=== PATIENT | male | born 1990 | race Caucasian/White ===

== ENCOUNTER 2022-05-04 15:16 | Inpatient (IN) ==
[2022-05-04 16:13] LABS: Basophils # (auto) 0.04 K/uL (0-0.2); Basophils % (auto) 0.6 %; Eosinophils # (auto) 0.06 K/uL (0-0.50); Eosinophils % (auto) 0.9 %; Hemoglobin 14.2 g/dl (14.0-18.0); Immature Granulocytes # (auto) 0.01 K/uL (0.00-0.02); Immature Granulocytes % (auto) 0.2 %; Lymphocytes # (auto) 1.31 K/uL (1.2-3.4); Lymphocytes % (auto) 20.6 %; Mean Corpuscular Volume 87.9 fL (80.0-100.0); Mean Platelet Volume 9.3 fL (9.4-12.4); Monocytes % (auto) 7.9 %; Neutrophils # (auto) 4.43 K/uL (1.4-6.5); Neutrophils % (auto) 69.8 %; Platelet Count 322 K/uL (130-400); RDW Coefficient of Variation 12.9 % (11.5-14.5); RDW Standard Deviation 41.4 fL (36.4-46.3); Red Blood Count 4.89 M/uL (4.63-6.08); White Blood Count 6.35 K/ul (4.8-10.8)
[2022-05-04 16:24] LABS: Appearance Urine Clear (Clear); Bilirubin Urine Negative (Negative); Blood Urine Negative (Negative); Color Urine Yellow; Glucose Urine UA Negative (Negative); Ketones Urine Negative (Negative); Leukocyte Esterase Urine Negative (Negative); Nitrite Urine Negative (Negative); Protein Urine Negative (Negative); Urobilinogen Urine Negative (Negative)
[2022-05-04 16:33] LABS: Alanine Aminotransferase 16 U/L (7-52); Albumin Globulin Ratio 1.7 (0.9-2); Albumin Level 4.5 gm/dl (3.4-5.0); Alkaline Phosphatase 73 U/L (34-104); Anion Gap 4 (3-11); Aspartate Aminotransferase 24 U/L (13-39); BUN Creatinine Ratio 15.7 (10-20); Bilirubin,Total 0.5 mg/dl (0.2-1.0); Blood Urea Nitrogen 14 mg/dl (6-23); Calcium 9.4 mg/dl (8.5-10.1); Carbon Dioxide 31 mmol/L (21-32); Chloride 101 mmol/L (98-107); Est GFR (Non-African American) 114.7 ml/min; Globulin 2.7 gm/dl (2.5-4.0); Glucose 96 mg/dl (70-99(Fasting)); Potassium 4.8 mmol/L (3.5-5.1); Sodium 136 mmol/L (136-145); Total Protein 7.2 gm/dl (6.0-8.3)
[2022-05-04 16:34] LABS: Acetaminophen < 3 ug/ml (10-30); Salicylate < 3.0 mg/dl (3.0-30)
[2022-05-04 16:47] LABS: Amphetamines+Metham, Urine Neg (Neg); Barbiturates, Urine Neg (Neg); Benzodiazepine, Urine Neg (Neg); Cocaine, Urine Neg (Neg); MDMA (Ecstacy), Urine Neg (Neg); Methadone, Urine Neg (Neg); Opiate, Urine Neg (Neg); Phencyclidine, Urine Neg (Neg)
--- NOTE | 2022-05-04 16:59 | History & Physical Report ---
Date of Service May 04, 2022 Assessment & Plan (1) Suicidal ideation: Plan: - Active attempt 2 days ago, attempted to strangle himself with a cord. Patient had auditory loose Nations then, but denies them now, also denies having active suicidal ideation or plan. - Suicide precautions, 1-1, safe meal tray ordered. - EKG to eval QTC with anticipated use of QTc prolonging agents. - Haldol 5 mg IM q6h prn for agitation with additional Zyprexa 10 mg HS prn. - Consult to psychiatry group placed. Patient is being admitted voluntarily, not currently under 302 however a petition for a 302 has been completed if patient does try to leave AMA. (2) Illicit drug use: Plan: - Since age 14, with methamphetamine being his drug of choice. Last use several weeks ago. - On Suboxone 8 mg TID, with clonidine 0.1 mg TID prn and Vistaril 50 mg TID for restlessness. * Did confirm PDMP the patient receives 8 mg of Suboxone 3 times daily, not the previously entered dose of 24 mg 3 times daily. * Evening dose 8 mg Suboxone ordered for administration in ED. -History of hepatitis C infection, treated while incarcerated several years ago. (3) COVID-19: Plan: - Asymptomatic, tested positive on routine admission testing in ED. - Labs all wnl, SpO2 100% on RA. No known underlying cardiac or pulmonary disease. - Will provide prn symptomatic care. - Daily labs. - Not vaccinated. Plan - Admitted to med/surg. - SCDs and Lovenox or VTE ppx - Full Code. History of Present Illness Chief Complaint: Suicide attempt 2 days ago, presents for mental health evaluation Primary Care Provider: NO PCP Jake Olivas is a 31-year-old male with past medical history of methamphetamine use and incarceration for the past 8 years recently admitted to [facility] who presents today with suicidal ideation. 2 days ago, he had a suicide attempt at [facility] in which he tried to strangle himself with a fan cord. His reason for doing so was because he felt he was being targeted and trying to be limited by the staff there and could not stand it anymore. It was somewhat of a poor impulse decision. He informed staff today of the attempt and he had asked to be transported to the ED for mental health evaluation. He states he arrived at the facility 8 days ago for rehabilitation and is paranoid that they are trying to "eliminate him ". He has had auditory hallucinations while being there, hearing voices saying that they are going to harm him, however no voices telling him to harm others. No visual or tactile hallucinations. No current hallucinations at the time of my visit. He states he is an otherwise healthy person, was treated several years ago for hepatitis C infection, otherwise besides his Suboxone he is not on any medications. He has not previously been diagnosed with any mental health conditions, but does state that he is struggling to incorporate himself into the world again after being in [facility] for so long and feels like he "is only 31 but is already ready to be done with life ". He tells me repeatedly he has no active plans for killing himself. He is very much looking forward to getting treatment. States the attempt 2 days ago was an impulsive decision because of the way he felt he was being treated and judged at the facility. In ED, his vital signs are within normal limits and stable, SPO2 100% on RA. Labs largely unremarkable with the exception of COVID which is positive here. UDS negative for all substances. From a COVID standpoint, he reports he has been asymptomatic, but that he has been profusely sweating the past few days which she attributes to being poisoned with septic water. Objective fevers reported, no chest pain, cough, shortness of breath, lightheadedness, dizziness, loss of taste or smell, headaches, abdominal pain, nausea, vomiting, diarrhea, constipation. Allergies Allergy/AdvReac Type Severity Reaction Status Date / Time No Known Allergies Allergy Unverified 05/04/22 15:51 Home Medications Medication Instructions Recorded Confirmed Type A To Z Multivitamin See Rx Instructions .Route .COMPLEX 05/04/22 05/04/22 History Allergy (diphenhydramine) 25 mg PO Q6 PRN Allergy Symptoms 05/04/22 05/04/22 History Suboxone 8 mg PO TID 05/04/22 05/04/22 History Vistaril 50 mg PO TID PRN restlessness 05/04/22 05/04/22 History clonidine 0.1 mg PO TID PRN restlessness 05/04/22 05/04/22 History Past Med/Surg History Medical History Illicit drug use No pertinent family history Suicidal ideation Surgical History No pertinent past surgical history Family History (Updated 05/04/22 @ 18:08 by Ashley Goff PA-C) Other Family history unknown Social History Smoking Status: Current every day smoker Tobacco Type: Cigarettes Preferred Language: Norwegian Feels Safe at Home: Yes Review of Systems Review of Systems: Constitutional: No fever/chills but sweating profusely for several days; no weakness, fatigue, myalgias, anorexia, night sweats Eyes: No diplopia, no worsening or blurred vision ENT: normal hearing, no trouble swallowing Respiratory: No cough, sputum, dyspnea at rest or on exertion Cardiovascular: No chest pain, tightness or palpitations Abdomen: No pain, nausea, vomiting, diarrhea or constipation : Denies dysuria, hematuria, increased urgency/frequency, urinary retention Musculoskeletal: No joint pain, calf pain, swelling Neurologic: No weakness, numbness/tingling, or balance problems Psychiatric: Paranoia, depression, hopelessness for the past week Skin: No rash or itch Physical Exam Physical Exam: General: awake, alert, no apparent distress Head: Normocephalic, atraumatic ENT: PERRL, EOMI, no pharyngeal exudate, mucous membranes moist Chest: Clear to auscultation, on room air, no adventitious breath sounds Cardiac: Regular rate and rhythm, no murmur, no JVD, normal peripheral pulses, good capillary refill Abdominal: NABS x 4 quadrants, soft, nontender to palpation, no rebound, guarding or tenderness Extremities: Normal inspection, no peripheral edema or erythema, calfs nontender to palpation Psych: anxious, paranoid, emotionally distressed, speaking rapidly Neuro: AAO x 3, strength intact bilaterally and rated 5/5, no motor deficits, speech is clear, no peripheral sensory deficits Skin: no rash or erythema Psychiatric: Orientation: alert and oriented x 3 Eye Contact: good eye contact Speech: + pressured speech Affect: + anxious affect and + tearful affect Mood: + anxious mood, + irritable mood and + angry mood Thought Process: + perseveration Thought Content: + paranoid and + hopelessness Suicidal Thoughts: denies suicidal plan Homicidal Thoughts: denies homicidal thoughts, denies homicidal plan and denies homicidal intent Insight: + poor insight Judgement: + limited judgement Results & Data Results & Data ([facility]) Vital Signs (Past 12 Hours) Vital Signs Temp Pulse Resp BP Pulse Ox O2 Del Method 05/04/22 15:30 36.8 C 67 18 132/69 100 Room Air Laboratory Results Abnormal lab results 05/04/22 05/04/22 05/04/22 Range/Units 15:30 15:47 15:47 MPV 9.3 L (9.4-12.4) fL Salicylates < 3.0 L (3.0-30) mg/dl Acetaminophen < 3 L (10-30) ug/ml SARS-CoV-2, RNA, NAAT POSITIVE A* (NEGATIVE) Code Status & VTE Plan Code Status Full Code. Supervising Physician Co-Signing Physician Notes Patient seen and examined, chart reviewed, case discussed with Ashley Goff PA-C and I agree with the assessment and plan as above except as otherwise noted Jake Olivas is a 31-year-old male with a history of suicidal ideation and illicit drug use who presents today from [facility] with active SI and a recent suicidal attempt 2 days prior. Endorses impulsivity. Did attempt to strangle himself 2 days ago. Does have a history of methamphetamine use. UDS on admission negative. No metabolic derangements. At bedside patient's breathing is unlabored, speech somewhat pressured. Endorses past impulsive SI, no current SI or active/passive HI. Denies AH/VH at bedside reports that he takes Suboxone 8 mg 3 times daily, this is mis-entered initially as 24 mg 3 times daily in EMR. updated. Patient is incidentally COVID-positive without symptoms on admission. He is being admitted under 302 and may not leave AMA, however due to positive COVID may not be admitted directly to U. He is currently saturating 100% on room air with no symptoms of COVID. Will admit for period of COVID isolation, and then transfer to U as appropriate. Psychiatry consulted. Patient is cooperative at time of admission, orders entered for Zyprexa nightly as needed for sleep/agitation. Orders placed for Haldol IM for severe agitation with patient risk of harm to self or others. We will continue on COVID DVT prophylaxis, and obtain initial CRP. If hypoxia develops that will progress to COVID treatment including steroids at that point, for now we will follow clinically otherwise. Patient to be admitted with one-to-one observation, safety tray, and suicide precautions. PG Care Time/CCT Total # of Minutes Spent Total Time Spent with Patient: Total time spent is greater than 50% in coordination of care (as documented) at patient's floor/unit and/or counseling patient: Coding Level of Care Code 46064 Initial Inpt Care Lvl 2 Diagnoses Suicidal ideation R45.851 Illicit drug use F19.90 COVID-19 U07.1
--- NOTE | 2022-05-04 17:35 | Emergency Department Note ---
History of Present Illness General Chief complaint: Mental Health Evaluation Stated complaint: MHID Time Seen by Provider: 05/04/22 15:51 History of Present Illness Provider complaint: Mental health evaluation 31-year-old male with history of methamphetamine abuse presents emergency depar tment from [facility] for mental health evaluation.Patient states he thinks he has schizophrenia's and been hearing voices to kill himself. Patient states 2 days ago the voices told him to kill himself so he tried to strangle himself with a fan cord however he himself stopped the strangling when he realized that none of the workers from [employer] were coming in to help him. Patient reports no chest pain or difficulty breathing. Home Medications Medication Instructions Recorded Confirmed Type A To Z Multivitamin See Rx Instructions .Route .COMPLEX 05/04/22 05/04/22 History Allergy (diphenhydramine) 25 mg PO Q6 PRN Allergy Symptoms 05/04/22 05/04/22 History Suboxone 8 mg PO TID 05/04/22 05/04/22 History Vistaril 50 mg PO TID PRN restlessness 05/04/22 05/04/22 History clonidine 0.1 mg PO TID PRN restlessness 05/04/22 05/04/22 History Allergies Allergy/AdvReac Type Severity Reaction Status Date / Time No Known Allergies Allergy Unverified 05/04/22 15:51 Past Med/Surg History Medical History Illicit drug use No pertinent family history Suicidal ideation Surgical History No pertinent past surgical history Family History (Updated 05/04/22 @ 18:08 by Ashley Goff PA-C) Other Family history unknown Social History Smoking Status: Current every day smoker Tobacco Type: Cigarettes Preferred Language: Romansh Feels Safe at Home: Yes Review of Systems A total of 10 systems reviewed and were otherwise negative Physical Exam Vital Signs Vital Signs - 24 hr 05/04/22 15:30 Temperature 36.8 C Temperature Source Oral Pulse Rate 67 Respiratory Rate 18 Blood Pressure 132/69 Blood Pressure Mean 90 Blood Pressure Position Sitting Pulse Oximetry 100 Oxygen Delivery Method Room Air Sepsis Recent Fever Within 48 Hours No Sepsis New/Unexplained Change in Mental Status No Sepsis Action Taken by Nursing No Action Required Physical Exam GENERAL: He is oriented to person, place, and time. He appears well-developed and well-nourished. He does not appear distressed. HENT: Exam performed. - Head: Normocephalic and atraumatic. - Right Ear: External ear normal. No mastoid tenderness. - Left Ear: External ear normal. No mastoid tenderness. - Mouth/Throat: The oropharynx is clear and moist. No trismus in the jaw. No dental abscesses or uvula swelling. No oropharyngeal exudate or tonsillar abscesses. EYES: Conjunctivae and EOM are normal. Pupils are equal, round, and reactive to light. Right eye exhibits no discharge. Left eye exhibits no discharge. No scleral icterus. NECK: Normal range of motion. Neck supple. No JVD present. No spinous process tenderness present. No carotid bruit present. No rigidity. No tracheal deviation and normal range of motion present. No Brudzinski's sign and no Kernig's sign noted. No anthony on the patient's neck to indicate any sort of strangulation CV: Normal rate, regular rhythm, normal heart sounds and intact distal pulses. There is no peripheral edema. Palpable radial pulses bue. PULM/CHEST: Effort normal and breath sounds normal. No respiratory distress. No stridor. He has no wheezes. He has no rales. - Chest Wall: He exhibits no tenderness. ABD: The abdomen is soft. Bowel sounds are normal. He has no distension. No mass is present. There is no tenderness. There is no rebound, no guarding, no Aly's sign and no tenderness at McBurney's point. Rovsig negative. MUSC/SKEL: Normal range of motion. There is no peripheral edema, tenderness or deformity. LYMPH: No cervical adenopathy. NEURO: He is alert and oriented to person, place, and time. He has normal strength. No cranial nerve deficit or sensory deficit. Coordination and gait normal. GCS eye subscore is 4. GCS verbal subscore is 5. GCS motor subscore is 6. Cerebellar tests wnl. SKIN: Skin is warm and dry. He is not diaphoretic. PSYCH: He has a normal mood and affect. Behavior is normal. Judgment and thought content normal. Course Course 1551: The patient was evaluated in room A5. A complete history and physical exam was performed 1655: Patient is COVID-positive. Other labs are within normal limits. Patient will be admitted to the medicine service for a inpatient psych evaluation. Ashley Lau team notified. Administered Medications Buprenorphine/Naloxone (Buprenorphine/Naloxone 8/2 Mg Tab) 1 tab SL TID SHARON Stop: 06/03/22 21:44 Last Admin: 05/04/22 21:40 Dose: 1 tab Documented By: AN Enoxaparin Sodium (Enoxaparin Inj 40 Mg/0.4 Ml Syr) 40 mg SQ Q12H SHARON Stop: 06/03/22 21:29 Last Admin: 05/04/22 21:40 Dose: Not Given Documented By: AN Discontinued Medications Buprenorphine/Naloxone (Buprenorphine/Naloxone 8/2 Mg Tab) 1 tab SL NOW STA Stop: 05/04/22 18:17 Last Admin: 05/04/22 18:35 Dose: 1 tab Documented By: RAMOS Medical Decision Making Laboratory Data Result diagrams: 05/04/22 15:47 05/04/22 15:47 Lab Results 05/04/22 05/04/22 05/04/22 Range/Units 15:30 15:30 15:30 WBC (4.8-10.8) K/ul RBC (4.63-6.08) M/uL Hgb (14.0-18.0) g/dl Hct (40.1-51.0) % MCV (80.0-100.0) fL MCH (25.0-34.0) pg MCHC (32.0-36.0) g/dL RDW Std Deviation (36.4-46.3) fL RDW Coeff of Bhavin (11.5-14.5) % Plt Count (130-400) K/uL MPV (9.4-12.4) fL Immature Gran % (Auto) % Neut % (Auto) % Lymph % (Auto) % [place] % (Auto) % Eos % (Auto) % Baso % (Auto) % Neut # (Auto) (1.4-6.5) K/uL Lymph # (Auto) (1.2-3.4) K/uL [place] # (Auto) (0.24-0.82) K/uL Eos # (Auto) (0-0.50) K/uL Baso # (Auto) (0-0.2) K/uL Immature Gran # (Auto) (0.00-0.02) K/uL Sodium (136-145) mmol/L Potassium (3.5-5.1) mmol/L Chloride (98-107) mmol/L Carbon Dioxide (21-32) mmol/L Anion Gap (3-11) BUN (6-23) mg/dl Creatinine (0.6-1.4) mg/dl Est Cr Clr Drug Dosing Est GFR ( Amer) ml/min Est GFR (Non-Af Amer) ml/min BUN/Creatinine Ratio (10-20) Glucose (70-99(Fasting)) mg/dl Calcium (8.5-10.1) mg/dl Total Bilirubin (0.2-1.0) mg/dl AST (13-39) U/L ALT (7-52) U/L Alkaline Phosphatase (34-104) U/L C-Reactive Protein (0-0.5) mg/dl Total Protein (6.0-8.3) gm/dl Albumin (3.4-5.0) gm/dl Globulin (2.5-4.0) gm/dl Albumin/Globulin Ratio (0.9-2) TSH (0.300-4.500) uIu/ml Urine Color Yellow Urine Appearance Clear (Clear) Urine pH 7.0 (4.5-7.5) Ur Specific Radnor 1.020 (1.000-1.030) Urine Protein Negative (Negative) Urine Glucose (UA) Negative (Negative) Urine Ketones Negative (Negative) Urine Blood Negative (Negative) Urine Nitrite Negative (Negative) Urine Bilirubin Negative (Negative) Urine Urobilinogen Negative (Negative) Ur Leukocyte Esterase Negative (Negative) Salicylates (3.0-30) mg/dl Urine Opiates Screen Neg (Neg) Ur Methadone, Qual Neg (Neg) Acetaminophen (10-30) ug/ml Urine Barbiturates Neg (Neg) Ur Phencyclidine (PCP) Neg (Neg) U Amphetamin/Meth Scrn Neg (Neg) MDMA (Ecstasy) Screen Neg (Neg) U Benzodiazepines Scrn Neg (Neg) Ur Cocaine Metabolite Neg (Neg) U Marijuana (THC) Screen Neg (Neg) Ethyl Alcohol mg/dL (<10.0) mg/dl SARS-CoV-2, RNA, NAAT POSITIVE A* (NEGATIVE) 05/04/22 05/04/22 05/04/22 Range/Units 15:47 15:47 15:47 WBC 6.35 (4.8-10.8) K/ul RBC 4.89 (4.63-6.08) M/uL Hgb 14.2 (14.0-18.0) g/dl Hct 43.0 (40.1-51.0) % MCV 87.9 (80.0-100.0) fL MCH 29.0 (25.0-34.0) pg MCHC 33.0 (32.0-36.0) g/dL RDW Std Deviation 41.4 (36.4-46.3) fL RDW Coeff of Bhavin 12.9 (11.5-14.5) % Plt Count 322 (130-400) K/uL MPV 9.3 L (9.4-12.4) fL Immature Gran % (Auto) 0.2 % Neut % (Auto) 69.8 % Lymph % (Auto) 20.6 % [place] % (Auto) 7.9 % Eos % (Auto) 0.9 % Baso % (Auto) 0.6 % Neut # (Auto) 4.43 (1.4-6.5) K/uL Lymph # (Auto) 1.31 (1.2-3.4) K/uL [place] # (Auto) 0.50 (0.24-0.82) K/uL Eos # (Auto) 0.06 (0-0.50) K/uL Baso # (Auto) 0.04 (0-0.2) K/uL Immature Gran # (Auto) 0.01 (0.00-0.02) K/uL Sodium 136 (136-145) mmol/L Potassium 4.8 (3.5-5.1) mmol/L Chloride 101 (98-107) mmol/L Carbon Dioxide 31 (21-32) mmol/L Anion Gap 4 (3-11) BUN 14 (6-23) mg/dl Creatinine 0.89 (0.6-1.4) mg/dl Est Cr Clr Drug Dosing Not Reportable Est GFR ( Amer) 133.0 ml/min Est GFR (Non-Af Amer) 114.7 ml/min BUN/Creatinine Ratio 15.7 (10-20) Glucose 96 (70-99(Fasting)) mg/dl Calcium 9.4 (8.5-10.1) mg/dl Total Bilirubin 0.5 (0.2-1.0) mg/dl AST 24 (13-39) U/L ALT 16 (7-52) U/L Alkaline Phosphatase 73 (34-104) U/L C-Reactive Protein < 0.50 (0-0.5) mg/dl Total Protein 7.2 (6.0-8.3) gm/dl Albumin 4.5 (3.4-5.0) gm/dl Globulin 2.7 (2.5-4.0) gm/dl Albumin/Globulin Ratio 1.7 (0.9-2) TSH 1.831 (0.300-4.500) uIu/ml Urine Color Urine Appearance (Clear) Urine pH (4.5-7.5) Ur Specific Rad[place] (1.000-1.030) Urine Protein (Negative) Urine Glucose (UA) (Negative) Urine Ketones (Negative) Urine Blood (Negative) Urine Nitrite (Negative) Urine Bilirubin (Negative) Urine Urobilinogen (Negative) Ur Leukocyte Esterase (Negative) Salicylates (3.0-30) mg/dl Urine Opiates Screen (Neg) Ur Methadone, Qual (Neg) Acetaminophen (10-30) ug/ml Urine Barbiturates (Neg) Ur Phencyclidine (PCP) (Neg) U Amphetamin/Meth Scrn (Neg) MDMA (Ecstasy) Screen (Neg) U Benzodiazepines Scrn (Neg) Ur Cocaine Metabolite (Neg) U Marijuana (THC) Screen (Neg) Ethyl Alcohol mg/dL (<10.0) mg/dl SARS-CoV-2, RNA, NAAT (NEGATIVE) 05/04/22 05/04/22 Range/Units 15:47 15:47 WBC (4.8-10.8) K/ul RBC (4.63-6.08) M/uL Hgb (14.0-18.0) g/dl Hct (40.1-51.0) % MCV (80.0-100.0) fL MCH (25.0-34.0) pg MCHC (32.0-36.0) g/dL RDW Std Deviation (36.4-46.3) fL RDW Coeff of Bhavin (11.5-14.5) % Plt Count (130-400) K/uL MPV (9.4-12.4) fL Immature Gran % (Auto) % Neut % (Auto) % Lymph % (Auto) % [place] % (Auto) % Eos % (Auto) % Baso % (Auto) % Neut # (Auto) (1.4-6.5) K/uL Lymph # (Auto) (1.2-3.4) K/uL [place] # (Auto) (0.24-0.82) K/uL Eos # (Auto) (0-0.50) K/uL Baso # (Auto) (0-0.2) K/uL Immature Gran # (Auto) (0.00-0.02) K/uL Sodium (136-145) mmol/L Potassium (3.5-5.1) mmol/L Chloride (98-107) mmol/L Carbon Dioxide (21-32) mmol/L Anion Gap (3-11) BUN (6-23) mg/dl Creatinine (0.6-1.4) mg/dl Est Cr Clr Drug Dosing Est GFR ( Amer) ml/min Est GFR (Non-Af Amer) ml/min BUN/Creatinine Ratio (10-20) Glucose (70-99(Fasting)) mg/dl Calcium (8.5-10.1) mg/dl Total Bilirubin (0.2-1.0) mg/dl AST (13-39) U/L ALT (7-52) U/L Alkaline Phosphatase (34-104) U/L C-Reactive Protein (0-0.5) mg/dl Total Protein (6.0-8.3) gm/dl Albumin (3.4-5.0) gm/dl Globulin (2.5-4.0) gm/dl Albumin/Globulin Ratio (0.9-2) TSH (0.300-4.500) uIu/ml Urine Color Urine Appearance (Clear) Urine pH (4.5-7.5) Ur Specific Radnor (1.000-1.030) Urine Protein (Negative) Urine Glucose (UA) (Negative) Urine Ketones (Negative) Urine Blood (Negative) Urine Nitrite (Negative) Urine Bilirubin (Negative) Urine Urobilinogen (Negative) Ur Leukocyte Esterase (Negative) Salicylates < 3.0 L (3.0-30) mg/dl Urine Opiates Screen (Neg) Ur Methadone, Qual (Neg) Acetaminophen < 3 L (10-30) ug/ml Urine Barbiturates (Neg) Ur Phencyclidine (PCP) (Neg) U Amphetamin/Meth Scrn (Neg) MDMA (Ecstasy) Screen (Neg) U Benzodiazepines Scrn (Neg) Ur Cocaine Metabolite (Neg) U Marijuana (THC) Screen (Neg) Ethyl Alcohol mg/dL < 10.0 (<10.0) mg/dl SARS-CoV-2, RNA, NAAT (NEGATIVE) MDM Narrative Patient is COVID-positive. Other labs are within normal limits. Patient will be admitted to the medicine service for a inpatient psych evaluation. Ashley Lau team notified. Impression & Plan Illicit drug use, Suicidal ideation, COVID-19 Discharge Plan Visit Data Chief Complaint: Mental Health Evaluation Stated Complaint: MHID ED Provider: Gregory Schulte Discharge Problem: Illicit drug use, Suicidal ideation, COVID-19 Patient Disposition: Admitted As Inpatient
[2022-05-04] MEDS ORDERED: BUPRENORPHINE/NALOXONE 8/2 MG TAB SL STA (18:16)
[2022-05-04 18:41] LABS: C Reactive Protein < 0.50 mg/dl (0-0.5)
[2022-05-04] MEDS ORDERED: OLANZapine 10 MG/2.1 ML SDV IM PRN (20:58)
[2022-05-04] MEDS ORDERED: POLYETHYLENE (MIRALAX) 17 GM PACK PO PRN (20:58)
[2022-05-04] MEDS ORDERED: HALOPERIDOL LACTATE 5 MG/ML 1 ML VIAL IM PRN (20:58)
[2022-05-04] MEDS ORDERED: ONDANSETRON INJ 2 MG/ML 2 ML VIAL IV PRN (20:58)
[2022-05-04] MEDS ORDERED: ACETAMINOPHEN 325 MG TAB PO PRN (20:58)
[2022-05-04] MEDS ORDERED: BUPRENORPHINE/NALOXONE 8/2 MG TAB SL SCH (21:30)
[2022-05-04] MEDS: ENOXAPARIN INJ 40 MG/0.4 ML SYR SQ SCH (21:40)
[2022-05-04] MEDS: BUPRENORPHINE/NALOXONE 8/2 MG TAB SL SCH (21:40)
[2022-05-05] MEDS: BUPRENORPHINE/NALOXONE 8/2 MG TAB SL SCH ×3 (08:24→20:01)
[2022-05-05] MEDS: ENOXAPARIN INJ 40 MG/0.4 ML SYR SQ SCH ×2 (08:36→20:01)
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
--- NOTE | 2022-05-05 12:52 | Electrocardiogram Report ---
Test Reason : Blood Pressure : / mmHG Vent. Rate : 067 BPM Atrial Rate : 067 BPM P-R Int : 138 ms QRS Dur : 092 ms QT Int : 396 ms P-R-T Axes : 053 057 043 degrees QTc Int : 418 ms Normal sinus rhythm with sinus arrhythmia Normal ECG No previous ECGs available Confirmed by Jose Vela ([id number]) on 05/05/2022 12:52:24 PM Referred By: REFERRED SELF Confirmed By:Jose Vela
[2022-05-05] MEDS ORDERED: risperiDONE 1 MG TABLET PO PRN (13:23)
[2022-05-05] MEDS ORDERED: NICOTINE POLACRILEX 2 MG GUM MT PRN (19:19)
--- NOTE | 2022-05-05 19:21 | Hospitalist Progress Note ---
Date of Service May 05, 2022 Assessment & Plan (1) Suicidal ideation: Plan: suicide attempt 2 days prior to admission --- attempted to strangle himself with a cord. seen by psych today --- 1:1 sitting removed; felt NOT to be actively suicidal or homicidal. per psych does not meet inpatient criteria at this time -- psychotic symptoms he experienced a few days ago resolved. I am concerned by his mild confusion (month/day wrong) - this will need to be watched carefully. Ideally patient stays tonight so that we can watch him and then determine his disposition, transportation, etc. night resident physician notified about today's events and plan. (2) Hallucinations: Plan: resolved 2nd to substance withdrawal? other? defer Rx, if any, to psych monitor for recurrence (3) Illicit drug use: Plan: Since age 14, with methamphetamine being his drug of choice. Last use several weeks ago. Was hospitalized at [facility] in [facility] for detox, then was transferred to [facility] in [place]. Stayed there 8 days. He does NOT want to return there. Cont Suboxone 8 mg TID, with clonidine 0.1 mg TID prn and Vistaril 50 mg TID for restlessness. PDMP confirms the patient receives 8 mg of Suboxone 3 times daily Of note - History of hepatitis C infection, treated while incarcerated several years ago. At this time no signs of any drug withdrawal. (4) COVID-19: Plan: Asymptomatic except for perhaps the night-sweats. Tested positive on routine admission testing in ED. Labs wnl. Vitals including O2 sats wnl. Monitor. No specific Rx needed. (5) Tobacco dependence: Plan: nicorette gum prn/as desired (6) DVT prophylaxis: Plan: lovenox BID Plan total time 45 minutes - complex care coordination Admission and Anticipated Discharge Date Admission Date: May 04, 2022 Subjective patient reports nightsweats for several days while at [facility] multiple other people at [facility] were + for COVID denies any dyspnea during my visit - which was attended by psych liason - patient simply asks that the TV work and that he wants to be left alone (dislikes the 1:1, which has been canceled) he lives in [facility] [place] [address] and has no means of getting there his cell phone is still at [facility] - doesn't know the phone numbers for his mother/father he thought it was March and didn't know day of the week he denied suicidal ideation he denied auditory or visual hallucinations he asked to go outside for a cigarette Review of Systems Review of Systems: gen - no fevers, no chills; night-sweats cv - no cp, no pleuritic pain pulm - no cough/dyspnea GI - no N/V/D/pain good appetite Physical Exam Physical Exam: gen - NAD, a little agitated and upset but directable skin - numerous tattoos mouth - MMM psych - a/o x 2 - got month/day wrong; no suicidal ideation; no psychosis lungs - no respiratory distress or increased work of breathing Results & Data Results & Data ([facility]) Vital Signs (Past 12 Hours) Vital Signs Temp Pulse Resp BP Pulse Ox O2 Del Method 05/05/22 16:34 36.9 C 74 16 132/86 99 05/05/22 08:27 37.0 C 93 H 18 109/76 100 Room Air Laboratory Results Labs 05/04/22 05/04/22 05/04/22 15:30 15:30 15:30 WBC RBC Hgb Hct MCV MCH MCHC RDW Std Deviation RDW Coeff of Bhavin Plt Count MPV Immature Gran % (Auto) Neut % (Auto) Lymph % (Auto) Whitman % (Auto) Eos % (Auto) Baso % (Auto) Neut # (Auto) Lymph # (Auto) Whitman # (Auto) Eos # (Auto) Baso # (Auto) Immature Gran # (Auto) Sodium Potassium Chloride Carbon Dioxide Anion Gap BUN Creatinine Est Cr Clr Drug Dosing Est GFR ( Amer) Est GFR (Non-Af Amer) BUN/Creatinine Ratio Glucose Calcium Total Bilirubin AST ALT Alkaline Phosphatase C-Reactive Protein Total Protein Albumin Globulin Albumin/Globulin Ratio TSH Urine Color Yellow Urine Appearance Clear Urine pH 7.0 Ur Specific [place] 1.020 Urine Protein Negative Urine Glucose (UA) Negative Urine Ketones Negative Urine Blood Negative Urine Nitrite Negative Urine Bilirubin Negative Urine Urobilinogen Negative Ur Leukocyte Esterase Negative Salicylates Urine Opiates Screen Neg Ur Methadone, Qual Neg Acetaminophen Urine Barbiturates Neg Ur Phencyclidine (PCP) Neg U Amphetamin/Meth Scrn Neg MDMA (Ecstasy) Screen Neg U Benzodiazepines Scrn Neg Ur Cocaine Metabolite Neg U Marijuana (THC) Screen Neg Ethyl Alcohol mg/dL SARS-CoV-2, RNA, NAAT POSITIVE A* 05/04/22 05/04/22 05/04/22 15:47 15:47 15:47 WBC 6.35 RBC 4.89 Hgb 14.2 Hct 43.0 MCV 87.9 MCH 29.0 MCHC 33.0 RDW Std Deviation 41.4 RDW Coeff of Bhavin 12.9 Plt Count 322 MPV 9.3 L Immature Gran % (Auto) 0.2 Neut % (Auto) 69.8 Lymph % (Auto) 20.6 Whitman % (Auto) 7.9 Eos % (Auto) 0.9 Baso % (Auto) 0.6 Neut # (Auto) 4.43 Lymph # (Auto) 1.31 Whitman # (Auto) 0.50 Eos # (Auto) 0.06 Baso # (Auto) 0.04 Immature Gran # (Auto) 0.01 Sodium 136 Potassium 4.8 Chloride 101 Carbon Dioxide 31 Anion Gap 4 BUN 14 Creatinine 0.89 Est Cr Clr Drug Dosing Not Reportable Est GFR ( Amer) 133.0 Est GFR (Non-Af Amer) 114.7 BUN/Creatinine Ratio 15.7 Glucose 96 Calcium 9.4 Total Bilirubin 0.5 AST 24 ALT 16 Alkaline Phosphatase 73 C-Reactive Protein < 0.50 Total Protein 7.2 Albumin 4.5 Globulin 2.7 Albumin/Globulin Ratio 1.7 TSH 1.831 Urine Color Urine Appearance Urine pH Ur Specific [place] Urine Protein Urine Glucose (UA) Urine Ketones Urine Blood Urine Nitrite Urine Bilirubin Urine Urobilinogen Ur Leukocyte Esterase Salicylates Urine Opiates Screen Ur Methadone, Qual Acetaminophen Urine Barbiturates Ur Phencyclidine (PCP) U Amphetamin/Meth Scrn MDMA (Ecstasy) Screen U Benzodiazepines Scrn Ur Cocaine Metabolite U Marijuana (THC) Screen Ethyl Alcohol mg/dL SARS-CoV-2, RNA, NAAT 05/04/22 05/04/22 15:47 15:47 WBC RBC Hgb Hct MCV MCH MCHC RDW Std Deviation RDW Coeff of Bhavin Plt Count MPV Immature Gran % (Auto) Neut % (Auto) Lymph % (Auto) Whitman % (Auto) Eos % (Auto) Baso % (Auto) Neut # (Auto) Lymph # (Auto) Whitman # (Auto) Eos # (Auto) Baso # (Auto) Immature Gran # (Auto) Sodium Potassium Chloride Carbon Dioxide Anion Gap BUN Creatinine Est Cr Clr Drug Dosing Est GFR ( Amer) Est GFR (Non-Af Amer) BUN/Creatinine Ratio Glucose Calcium Total Bilirubin AST ALT Alkaline Phosphatase C-Reactive Protein Total Protein Albumin Globulin Albumin/Globulin Ratio TSH Urine Color Urine Appearance Urine pH Ur Specific [place] Urine Protein Urine Glucose (UA) Urine Ketones Urine Blood Urine Nitrite Urine Bilirubin Urine Urobilinogen Ur Leukocyte Esterase Salicylates < 3.0 L Urine Opiates Screen Ur Methadone, Qual Acetaminophen < 3 L Urine Barbiturates Ur Phencyclidine (PCP) U Amphetamin/Meth Scrn MDMA (Ecstasy) Screen U Benzodiazepines Scrn Ur Cocaine Metabolite U Marijuana (THC) Screen Ethyl Alcohol mg/dL < 10.0 SARS-CoV-2, RNA, NAAT PG Care Time/CCT Total # of Minutes Spent Total Time Spent with Patient: Total time spent is greater than 50% in coordination of care (as documented) at patient's floor/unit and/or counseling patient: Coding Level of Care Code 64877 Subseq Hosp Care Lvl 3 Diagnoses Suicidal ideation R45.851 Hallucinations R44.3 Illicit drug use F19.90 COVID-19 U07.1 Tobacco dependence F17.200 DVT prophylaxis Z29.9
[2022-05-05] MEDS: cloNIDine HCL 0.1 MG TAB PO PRN (22:37)
[2022-05-05] MEDS: hydrOXYzine HCl 25 MG TAB PO PRN (22:38)
[2022-05-06] MEDS: BUPRENORPHINE/NALOXONE 8/2 MG TAB SL SCH ×3 (08:21→20:31)
[2022-05-06] MEDS: ENOXAPARIN INJ 40 MG/0.4 ML SYR SQ SCH (08:22)
[2022-05-06] MEDS: AMOXICILLIN/CLAVULANATE 875 MG TAB PO SCH ×2 (11:49→17:16)
[2022-05-06] MEDS: CIPRO 0.2%/HYDROCORTISONE 1% OTIC SUSP 10 ML BTL OTB SCH ×2 (11:50→20:31)
--- NOTE | 2022-05-06 14:39 | Psychiatric Progress Note ---
Date of Service May 06, 2022 Impression / Recommendations Impression 31 yo man with history of extended incarcerations, antisocial traits, polysubstance use admitted with COVID infection and worsening paranoia and suicide rehearsal behaviors at [facility]. Diagnostically consistent with unspecified psychosis most likely methamphetamine withdrawal induced psychosis which has improved. Acute risk of harm to self remains low given no prior suicide attempts, description of attempt as means of gaining exit from [facility] and frustration when attention was not given to rehearsal behaviors, denial of current SI and future-oriented. Chronic risk is moderate with substance use treatment being most significant modifiable risk factor. 05/06/22: No evidence of psychosis today, continues to consistently deny SI and no other concerning symptoms as he denies HI and no evidence for alli nor inability to care for self so doesn't meet 302 criteria and doesn't meet inpatient psychiatric criteria nor does he desire this. He is future-oriented and focused on returning to [place] and recovering from COVID and then going for residential substance use treatment at a different facility. Reviewed that he has a suboxone script and follow-up providers for this. He isn't interested in any risperidone for if paranoia reoccurs with methamphetamine use. Counseled on risk of reoccurrence of paranoia and psychosis if he uses methamphetamine again and he states his intent to avoid any methamphetamine use and engage with substance use treatment. (1) Substance-induced psychotic disorder: (2) COVID-19: (3) Adult antisocial behavior: Plan -Safe for discharge from psychiatric standpoint -Can leave AMA if he asks to do so, doesn't meet 302 criteria -Has outpatient script for suboxone which he can continue and declines any scripts for risperidone, doesn't want to take any psychiatric medications -Has suboxone follow-up via clinic in [place] and can discuss residential treatment referral with them which he feels comfortable doing and wants to do Risk Factors Assessment Do You Have Access To A Gun?: No Interval History Identifying Information 31 man living in [place], [place] with a history of repeated incarcerations, opioid use disorder on maintenance therapy and methamphetamine use disorder admitted medically due to COVID infection after transfer from [facility] residential treatment facility following suicide rehearsal behavior and paranoia. Chief Complaint "I want to leave". Review of Systems Notes Reports good sleep and stable appetite Telehealth Telehealth Options: Telephone only For the duration of the visit, provider was performing the assessment from: The same facility as the patient After establishing a telemedicine visit, patient was: Patient was verified with two unique identifiers, Patient/authorized rep acknowledged consent and understanding and Gave permission to continue telehealth session Total Time Spent (minutes): 20 Subjective Subjective Patient was seen & assessed and interval progress reviewed via telemedicine as he is positive for COVID. Had code fish yesterday evening due to wanting to leave the hospital because of frustration about [facility] having his phone and stuff. He agreed to return to his room and did not require any medication. He accepted po risperidone prn last night. Today he is pleased that he just got his phone back from [facility] and is making calls to housing resources near [facility] in [place]. He denies SI and HI. Denies any paranoia stating no one has been targeting or bothering him though remains very frustrated with [facility] due to the delay in getting his stuff back and not being tested for COVID when he asked but denies any HI toward any staff there, states he has moved past it but never wants to return there for substance use treatment. Interested in getting back to residential treatment after he recovers from COVID and wants to work with the recovery center in [place] once he is no longer infectious with COVID+ to go somewhere else. States he has his suboxone prescription and can take this once he leaves and states he he can follow up with the [facility] program in [facility] once he's due for his next script. He doesn't want a script for risperidone, doesn't feel he needs any psychiatric medications, one day would like to get medical marijuana for "past trauma". Physical Exam Psychiatric Orientation: alert and oriented x 3 Speech: normal rate/rhythm/volume of speech Mood: no depressed mood, no anxious mood, no irritable mood and no angry mood Thought Process: goal directed thought process and clear/coherent thought process Thought Content: reality based without delusions Suicidal Thoughts: denies suicidal thoughts Homicidal Thoughts: denies homicidal thoughts Hallucinations: no auditory hallucinations and no visual hallucinations Cognition: recent memory grossly intact, remote memory grossly intact, attention grossly intact and language grossly intact Insight: + fair insight Judgement: + fair judgement Vital Signs (Past 24 Hours) Last Vital Signs Temp 36.9 C 05/05/22 20:05 Pulse 82 05/05/22 20:05 Resp 20 05/05/22 20:05 BP 116/75 05/05/22 20:05 Pulse Ox 97 05/05/22 20:05 O2 Del Method 05/05/22 20:05 Results & Data ([facility]) Current Inpatient Medications Current Inpatient Medications: Current Inpatient Medications Acetaminophen (Acetaminophen 325 Mg Tab) 650 mg PO Q4H PRN PRN Reason: Pain or Fever Stop: 06/03/22 20:57 Amoxicillin/Clavulanate Potassium (Amoxicillin/Clavulanate 875 Mg Tab) 1 tab PO BIDM [facility] Stop: 05/16/22 10:29 Last Admin: 05/06/22 11:49 Dose: 1 tab Buprenorphine/Naloxone (Buprenorphine/Naloxone 8/2 Mg Tab) 1 tab SL TID [facility] Stop: 06/03/22 21:44 Last Admin: 05/06/22 13:15 Dose: 1 tab Ciprofloxacin/Hydrocortisone (Cipro 0.2%/Hydrocortisone 1% Otic Susp 10 Ml Btl) 5 drops OTB BID [facility] Stop: 06/05/22 10:29 Last Admin: 05/06/22 11:50 Dose: 5 drops Clonidine HCl (Clonidine Hcl 0.1 Mg Tab) 0.1 mg PO TID PRN PRN Reason: restlessness Stop: 06/03/22 21:06 Last Admin: 05/05/22 22:37 Dose: 0.1 mg Enoxaparin Sodium (Enoxaparin Inj 40 Mg/0.4 Ml Syr) 40 mg SQ DAILY [facility] Stop: 06/03/22 21:29 Haloperidol Lactate (Haloperidol Lactate 5 Mg/Ml 1 Ml Vial) 5 mg IM Q4H PRN PRN Reason: Agitation, Self Harm Behavior Stop: 06/03/22 20:57 Hydroxyzine HCl (Hydroxyzine Hcl 25 Mg Tab) 50 mg PO TID PRN PRN Reason: restlessness Stop: 06/03/22 21:07 Last Admin: 05/05/22 22:38 Dose: 50 mg Nicotine Polacrilex (Nicotine Polacrilex 2 Mg Gum) 1 piece MT PRN PRN PRN Reason: nicotine withdrawal Stop: 06/04/22 19:18 Last Admin: 05/05/22 20:01 Dose: 1 piece Olanzapine (Olanzapine 10 Mg/2.1 Ml Sdv) 10 mg IM HS PRN PRN Reason: Agitation Stop: 06/03/22 20:57 Ondansetron HCl (Ondansetron Inj 2 Mg/Ml 2 Ml Vial) 4 mg IV Q6H PRN PRN Reason: Nausea Stop: 06/03/22 20:57 Polyethylene Glycol (Polyethylene (Miralax) 17 Gm Pack) 17 gm PO DAILY PRN PRN Reason: Constipation Stop: 06/03/22 20:57 Risperidone (Risperidone 1 Mg Tablet) 1 mg PO BID PRN PRN Reason: Anxiety/Agitation Stop: 06/04/22 20:59 Last Admin: 05/05/22 22:38 Dose: 1 mg
--- NOTE | 2022-05-06 21:56 | Hospitalist Progress Note ---
Date of Service May 06, 2022 Assessment & Plan (1) Suicidal ideation: Plan: suicide attempt 2 days prior to admission --- attempted to strangle himself with a cord while rehabbing at [facility] [place]. seen by psychiatry at [facility] --- 1:1 sitting removed; felt NOT to be actively suicidal or homicidal. per psych does not meet inpatient criteria at this time -- psychotic symptoms he experienced a few days ago resolved. Yesterday was mildly confused to month/day but today is fully oriented. Denies any suicidal ideation or psychotic symptoms. He retains capacity to make medical decisions on his own behalf. (2) Hallucinations: Plan: resolved 2nd to substance withdrawal? other? defer Rx, if any, to psych monitor for recurrence (3) Illicit drug use: Plan: Since age 14, with methamphetamine being his drug of choice. Last use several weeks ago. Was hospitalized at [facility] in [facility] for detox, then was transferred to [facility] in [place]. Stayed there 8 days. He does NOT want to return there. Cont Suboxone 8 mg TID, with clonidine 0.1 mg TID prn and Vistaril 50 mg TID for restlessness. PDMP confirms the patient receives 8 mg of Suboxone 3 times daily Of note - History of hepatitis C infection, treated while incarcerated several years ago. At this time no signs of any drug withdrawal. (4) COVID-19: Plan: Only mildly symptomatic with recent night-sweats and now nasal congestion. Ear issues are chronic. Tested positive on routine admission testing in ED. Patient states there were several patients at [facility] that had COVID. Labs wnl. Vitals including O2 sats wnl. Monitor. No specific Rx needed. (5) Tobacco dependence: Plan: nicorette gum prn/as desired he has been counseled multiple times by numerous people he cannot leave his room due to COVID AND there is no smoking on hospital grounds (6) DVT prophylaxis: Plan: lovenox daily (7) Otalgia of both ears: Plan: at minimum has chronic otitis externa chronic otitis externa tends to be fungal - consider a culture for bacteria and fungus place on cipro OTIC HC BID he could have chronic OME with perforation and subsequent ear canal drainage thus, will place on augmentin BID plan Rx 7 days (8) Homelessness: Plan: social work aware we are attempting to work on a safe discharge plan Admission and Anticipated Discharge Date Admission Date: May 04, 2022 Subjective patient with uneventful night c/o mild nasal congestion also mentions CHRONIC (at least 6-12 months) b/l ear drainage and pain has had several courses of antibiotics in the past for this left ear worse than right denies cough or dyspnea denies suicidal ideation denies psychotic symptoms - no hallucinations, auditory or visual he still does not have his phone from [facility] it was taken by staff and locked up he cannot contact his family or friends until getting the phone admitted that prior to going into the hospital in [facility] for detox from Meth he was homeless Review of Systems Review of Systems: gen - no fevers, chills or sweats cv - no chest pain pulm - no cough, no dyspnea GI - no nausea, emesis, diarrhea Physical Exam Physical Exam: gen - NAD, calm/cooperative skin - numerous tattoos mouth - MMM ears - b/l ear canals with purulent, yellow drainage; TMs not seen; +pain with palpation over the tragus L>R neck - no JVD heart - RRR, s1 s2, no murmur lungs - CTA b/l abd - soft NT ND BS+ ext - no edema psych - a/o x 3 (knew month and day today) Results & Data Results & Data ([facility]) Vital Signs (Past 12 Hours) temp 36.9, HR 74, RR 16, BP 132/86 PG Care Time/CCT Total # of Minutes Spent Total Time Spent with Patient: Total time spent is greater than 50% in coordination of care (as documented) at patient's floor/unit and/or counseling patient: Coding Level of Care Code 99009 Subseq Hosp Care Lvl 2 Diagnoses Suicidal ideation R45.851 Hallucinations R44.3 Illicit drug use F19.90 COVID-19 U07.1 Tobacco dependence F17.200 DVT prophylaxis Z29.9 Otalgia of both ears H92.03 Homelessness Z59.00
[2022-05-07] MEDS: hydrOXYzine HCl 25 MG TAB PO PRN (00:07)
[2022-05-07] MEDS: cloNIDine HCL 0.1 MG TAB PO PRN (00:08)
[2022-05-07] MEDS: CIPRO 0.2%/HYDROCORTISONE 1% OTIC SUSP 10 ML BTL OTB SCH (08:59)
[2022-05-07] MEDS ORDERED: ENOXAPARIN INJ 40 MG/0.4 ML SYR SQ SCH (09:00)
[2022-05-07] MEDS: BUPRENORPHINE/NALOXONE 8/2 MG TAB SL SCH ×2 (09:00→12:45)
[2022-05-07] MEDS: AMOXICILLIN/CLAVULANATE 875 MG TAB PO SCH (09:00)
--- NOTE | 2022-05-07 15:03 | Discharge Summary ---
Date of Service May 07, 2022 Admission HPI Per Admitting Provider Jake Olivas is a 31-year-old male with past medical history of methamphetamine use and incarceration for the past 8 years recently admitted to [facility] who presents today with suicidal ideation. 2 days ago, he had a suicide attempt at [facility] in which he tried to strangle himself with a fan cord. His reason for doing so was because he felt he was being targeted and trying to be limited by the staff there and could not stand it anymore. It was somewhat of a poor impulse decision. He informed staff today of the attempt and he had asked to be transported to the ED for mental health evaluation. He states he arrived at the facility 8 days ago for rehabilitation and is paranoid that they are trying to "eliminate him ". He has had auditory hallucinations while being there, hearing voices saying that they are going to harm him, however no voices telling him to harm others. No visual or tactile hallucinations. No current hallucinations at the time of my visit. He states he is an otherwise healthy person, was treated several years ago for hepatitis C infection, otherwise besides his Suboxone he is not on any medications. He has not previously been diagnosed with any mental health conditions, but does state that he is struggling to incorporate himself into the world again after being in [facility] for so long and feels like he "is only 31 but is already ready to be done with life ". He tells me repeatedly he has no active plans for killing himself. He is very much looking forward to getting treatment. States the attempt 2 days ago was an impulsive decision because of the way he felt he was being treated and judged at the facility. In ED, his vital signs are within normal limits and stable, SPO2 100% on RA. Labs largely unremarkable with the exception of COVID which is positive here. UDS negative for all substances. From a COVID standpoint, he reports he has been asymptomatic, but that he has been profusely sweating the past few days which she attributes to being poisoned with septic water. Objective fevers reported, no chest pain, cough, shortness of breath, lightheadedness, dizziness, loss of taste or smell, headaches, abdominal pain, nausea, vomiting, diarrhea, constipation. Principal Diagnosis Suicide attempt, acute psychosis, COVID-19, otitis externa Discharge Exam gen - NAD, calm/cooperative skin - numerous tattoos mouth - MMM ears - no erythema or drainage from ears visible from outside neck - no JVD heart - RRR, s1 s2, no murmur lungs - CTA b/l abd - soft NT ND BS+ ext - no edema psych - a/o x 3 Discharge Data Allergies Allergy/AdvReac Type Severity Reaction Status Date / Time No Known Allergies Allergy Unverified 05/04/22 15:51 Consultations 05/04/22 16:41 ED Decision to Admit Stat 05/04/22 20:58 Consult Psychiatry Routine Hospital Course (1) Suicidal ideation: suicide attempt 2 days prior to admission --- attempted to strangle himself with a cord while rehabbing at [facility] [place]. seen by psychiatry at [facility] --- 1:1 sitting removed; felt NOT to be actively suicidal or homicidal. per psych does not meet inpatient criteria at this time -- psychotic symptoms he experienced a few days ago resolved. Psych thinks this was a "rehearsal" suicide behavior for attempts to seek att ention Confusion resolved, now fully oriented. Denies any suicidal ideation or psychotic symptoms. He retains capacity to make medical decisions on his own behalf. Stable for discharge (2) Hallucinations: resolved 2nd to substance withdrawal? other? Psych offered Risperdal prn and patient declined (3) Illicit drug use: Since age 14, with methamphetamine being his drug of choice. Last use several weeks ago. Was hospitalized at [facility] in [facility] for detox, then was transferred to [facility] in [place]. Stayed there 8 days. He does NOT want to return there. Cont Suboxone 8 mg TID, with clonidine 0.1 mg TID prn and Vistaril 50 mg TID for restlessness. PDMP confirms the patient receives 8 mg of Suboxone 3 times daily Of note - History of hepatitis C infection, treated while incarcerated several years ago. At this time no signs of any drug withdrawal. (4) COVID-19: Only mildly symptomatic with recent night-sweats and now nasal congestion. Ear issues are chronic. Tested positive on routine admission testing in ED. Patient states there were several patients at [facility] that had COVID. Labs wnl. Vitals including O2 sats wnl. Monitor. No specific Rx needed. (5) Tobacco dependence: nicorette gum prn/as desired he has been counseled multiple times by numerous people he cannot leave his room due to COVID AND there is no smoking on hospital grounds (6) DVT prophylaxis: lovenox daily (7) Otalgia of both ears: at minimum has chronic otitis externa chronic otitis externa tends to be fungal - consider a culture for bacteria and fungus place on cipro OTIC HC BID he could have chronic OME with perforation and subsequent ear canal drainage thus, will place on augmentin BID plan Rx 7 days-printed out Rxs for him on discharge (8) Homelessness: social work aware patient plans on checking himself in to another hospital closer to his hometown after he leaves here by bus Plan Dispo-stable for dc to home Total Time Total Time Spent Total Time Spent (In Minutes): 35 min Discharge Plan Discharge Items Patient Disposition: Home - Self-Care Reason For Visit: SUICIDAL IDEATION, ASYMPTOMATIC COVID Discharge Diagnosis: Suicide attempt, COVID-19, otitis externa Condition on Discharge: Good Activity: Resume your previous activity Non-emergency contact: Primary Care Provider Call non-emergency contact if: you have any medication questions, your symptoms worsen and you have a fever Follow-up/Referrals: PCP,NO [Primary Care Provider] - Diet: Regular Addtl Attending Provider Instructions: Please finish out the course of Augmentin twice a day and the ear drops for your ear infection. Follow up with a primary care doctor as soon as you can. Pending Studies at Discharge: No Stand-Alone Forms: My [facility], Smoking Cessation Medications and DC Order Prescriptions: New Cipro HC 0.2-1 % Drops,Suspension 5 drp OTB BID 6 Days Qty: 10 0RF amoxicillin-pot clavulanate 875-125 mg Tablet 1 tab PO BIDM Qty: 12 0RF Continued Suboxone film 8 mg PO TID Allergy (diphenhydramine) capsule 25 mg PO Q6 PRN (Reason: Allergy Symptoms) clonidine tablet 0.1 mg PO TID PRN (Reason: restlessness) A To Z Multivitamin See Rx Instructions .ROUTE .COMPLEX Rx Instructions: multivit Vistaril tablet 50 mg PO TID PRN (Reason: restlessness) Discharge Orders: Discharge Order (Routine); Ordered 05/07/22 Ordered By: Amy Parker/Other Patient Handouts: Preventing Deep Vein Thrombosis Admission Data Admit Date/Time: 05/04/22 17:01 Attending Provider: Amy Vidales Admit Provider: Patel Reynoso Primary Care Provider: PCP,NO Other Providers: Patel Reynoso ; Donna Castro ; Elzbieta Kowalski ; Aruna Luque Other Interventions: Discharge Summary Assessment (RN) Last Done: 05/07/22 15:03 Coding Level of Care Code D/C DAY MANAGEMENT >30 MINS Diagnoses Suicidal ideation R45.851 Hallucinations R44.3 Illicit drug use F19.90 COVID-19 U07.1 Tobacco dependence F17.200 DVT prophylaxis Z29.9 Otalgia of both ears H92.03 Homelessness Z59.00
== END 2022-05-07 16:03 | disposition home or self-care (01) | DRG 178 ==
LOC: ED 15:16 → EDINP 17:01 → SUATTDRO 17:01 → 3E 05-05 16:42
DX: F15.10 Other stimulant abuse, uncomplicated; Z28.310 Unvaccinated for COVID-19; Z88.5 Allergy status to narcotic agent; F17.210 Nicotine dependence, cigarettes, uncomplicated; Z88.8 Allergy status to other drugs, medicaments and biological substances; F19.959 Other psychoactive substance use, unspecified with psychoactive substance-induced psychotic disorder, unspecified; Z72.811 Adult antisocial behavior; U07.1 COVID-19; Z59.02 Unsheltered homelessness; Z65.3 Problems related to other legal circumstances; H60.63 Unspecified chronic otitis externa, bilateral; R45.851 Suicidal ideations; R44.0 Auditory hallucinations